=== PATIENT | male | born 1975 | race Caucasian/White ===

== ENCOUNTER 2019-10-11 14:18 | Emergency (ER) | payer OTHER ==
[~2019-10-11] VITALS: Ht 177.8 cm; Wt 77.3 kg
--- NOTE | 2019-10-11 15:09 | ECGEPIP ---
[facility] - ED Test Date: 2019-10-11 Pat Name: EZEKIEL HARP Department: Room: - Gender: Male Manager Research: sandra : 1975 Requested By: Jeevan Bhardwaj Order Number: [id number] Reading MD: Tessie Sequeira Measurements Intervals [place] Rate: 64 P: 76 KS: 167 QRS: 67 QRSD: 92 T: 68 QT: 389 QTc: 404 Interpretive Statements SINUS RHYTHM WITH SINUS ARRHYTHMIA NO PRIOR Electronically Signed on 10-11-2019 15:08:45 EST by Tessie Sequeira
[2019-10-11] MEDS ORDERED: NORCO, ANEXSIA 5/325MG TABLET (HYDROcodone/ACETAMINOPHEN) PO ONE (15:15)
--- NOTE | 2019-10-11 15:50 | REP ---
Head CT without contrast: History: Syncope. Comparison study: No comparison study. CT findings: Bone window settings demonstrate an intact bony calvarium. There is no evidence of skull fracture or incidental bony calvarial lesion. The visualized paranasal sinuses appear clear. No intraorbital abnormality is seen. On soft tissue window setting images; the lateral, third, and fourth ventricles are normal in size and position. Cade-white differentiation pattern is normal above and below the tentorium. There are is no evidence of intracranial hemorrhage. No mass, edema, infarction, or midline shift is seen. No extra-axial fluid collection is appreciated. Impression: Negative noncontrast head CT. Electronically Signed by Kevin Freire MD 10/11/2019 03:41 P
[2019-10-11 15:56] LABS: BASO # 0.1 10^3/uL (0.0-0.2); BASO % 0.4 % (0.0-1.0); EOS % 0.3 % (0.0-3.0); HEMATOCRIT 49.4 % (42.0-52.0); HEMOGLOBIN 16.2 g/dl (13.5-17.5); LYMPH # 1.6 10^3/uL (1.5-5.0); LYMPH % 11.8 % (24.0-44.0); MEAN CORPUSCULAR HEMOGLOBIN 29.2 pg (27.0-33.0); MEAN CORPUSCULAR HGB CONC 32.8 g/dl (32.0-36.5); MONO % 6.9 % (0.0-5.0); NEUTROPHILS % 80.2 % (36.0-66.0); PLATELET COUNT, AUTOMATED 201 10^3/uL (150-450); RED BLOOD COUNT 5.55 10^6/uL (4.30-6.10); WHITE BLOOD COUNT 13.7 10^3/uL (4.0-10.0)
[2019-10-11 16:32] LABS: BLOOD UREA NITROGEN 8 MG/DL (7-18); CALCIUM LEVEL 8.4 MG/DL (8.5-10.1); CARBON DIOXIDE LEVEL 29 MEQ/L (21-32); CHLORIDE LEVEL 107 MEQ/L (98-107); CK-MB VALUE MASS 1.4 NG/ML (<3.6); CPK CREATINE PHOSPHOKINASE 119 U/L (39-308); CREATININE FOR GFR 1.04 MG/DL (0.70-1.30); GLOMERULAR FILTRATION RATE > 60.0 (>60); GLUCOSE, FASTING 112 MG/DL (70-100); MB/CK RELATIVE INDEX 1.18 (< OR =4); SODIUM LEVEL 140 MEQ/L (136-145); THYROID STIMULATING HORMONE 0.644 uIU/ML (0.358-3.740); TROPONIN I < 0.02 NG/ML (< 0.10)
[2019-10-11] MEDS ORDERED: NORC1TAB7 PO ×2 (19:38→19:50)
[2019-10-11 19:52] VITALS: BP 131/79
--- NOTE | 2019-10-11 22:53 | REP ---
Emergency MRI study lumbar spine without contrast: History: Severe low back pain with loss of bladder control. No comparison study. Technique: Sagittal and axial T1 and T2-weighted scans are acquired in the usual fashion with and without fat saturation. Sequences include spin echo, turbo spin-echo, and STIR imaging sequences. MRI findings: Lumbar vertebral body heights are preserved. Alignment is normal. Cortical and medullary bone signal intensity are intact. No bony destructive lesion is seen. There is no evidence of spondylolysis or spondylolisthesis. The tip of the conus medullaris is normal in position and appearance at L1. No extra-vertebral abnormalities observed. There is degenerative disc narrowing and mild desiccation at L2-3, L4-5, and L5-S1 discs. Axial and sagittal images taken at L5-S1 demonstrate mild facet hypertrophy and mild central disc bulging. No thecal sac compression is seen. No foraminal stenosis is observed. At L4-5, there is a broad-based central focal disc protrusion subtly indenting the ventral margin of the thecal sac. No neural foraminal narrowing or central canal stenosis is seen. Minimal facet hypertrophy. At L3-4, there is no evidence of disc protrusion, spinal stenosis, or foraminal narrowing. The more proximal lumbar levels show no significant disc finding. Impression: Mild degenerative disc disease and facet hypertrophy at L2-3, L4-5, and L5-S1. There is broad-based mild central disc protrusion at 4-5 with minimal thecal sac compression. No foraminal narrowing or central canal stenosis. No acute bony abnormality. Electronically Signed by Kevin Freire MD 10/12/2019 08:06 A
== END 2019-10-11 19:55 | disposition home or self-care (01) ==
LOC: EDBD 14:18 → M ED 14:18
DX: R56.9 Unspecified convulsions (principal); M51.36 Other intervertebral disc degeneration, lumbar region; M51.37 Other intervertebral disc degeneration, lumbosacral region; M51.26 Other intervertebral disc displacement, lumbar region

== ENCOUNTER 2019-10-24 17:59 | Emergency (ER) | payer OTHER ==
[~2019-10-24] VITALS: Ht 180.3 cm; Wt 76.4 kg
[~2019-10-24 17:59] MED LIST: NORC1TAB7 PO
[2019-10-24] MEDS ORDERED: NORCO, ANEXSIA 5/325MG TABLET (HYDROcodone/ACETAMINOPHEN) PO ONE (20:15)
[2019-10-24] MEDS ORDERED: KETO10TAB PO (20:18)
[2019-10-24] MEDS ORDERED: NORC1TAB7 PO (20:18)
[2019-10-24 20:25] VITALS: BP 138/88
== END 2019-10-24 20:37 | disposition home or self-care (01) ==
LOC: M ED 17:59
DX: M51.36 Other intervertebral disc degeneration, lumbar region (principal); M54.5 Low back pain; F17.218 Nicotine dependence, cigarettes, with other nicotine-induced disorders

== ENCOUNTER → 2020-06-03 | Outpatient (CLI) | payer OTHER ==
[~2020-06-03] MED LIST changes: +KETO10TAB PO
[2020-06-03 16:04] LABS: PLATELET COUNT, AUTOMATED 236 10^3/uL (150-450)
[2020-06-03 16:22] LABS: INR 1.03; PROTHROMBIN TIME 13.7 SECONDS (12.5-14.3)
[2020-06-03 16:23] LABS: PARTIAL THROMBOPLASTIN TIME 33.6 SECONDS (24.2-38.5)
== END ==
LOC: M PLALAB 13:13
PROVIDERS: ATTEND Physician Assistant
DX: M47.817 Spondylosis without myelopathy or radiculopathy, lumbosacral region (principal)

== ENCOUNTER → 2020-07-24 | Outpatient (CLI) | payer OTHER | LOC: M LABSMTC 10:40 | PROVIDERS: ATTEND Physical Medicine & Rehabilitation | DX: Z01.812 Encounter for preprocedural laboratory examination (principal); Z20.828 Contact with and (suspected) exposure to other viral communicable diseases ==

== ENCOUNTER → 2021-02-14 | Outpatient (CLI) | payer OTHER ==
--- NOTE | 2021-02-14 17:14 | REPVR ---
PROCEDURE INFORMATION: Exam: MR Lumbar Spine Without Contrast. Exam date and time: 02/14/2021 3:51 PM Age: 45 years old Clinical indication: Low back pain; Additional info: Spinal stenosis R/O hnp stenosis compare to 10/11/19 TECHNIQUE: Imaging protocol: Multiplanar magnetic resonance images of the lumbar spine without contrast. COMPARISON: MRI-Spine, L.S. without con 10/11/2019 4:24 PM FINDINGS: Normal lumbar lordosis. Alignment anatomic. Bone marrow signal normal. No MR evidence of acute fracture, dislocation or subluxation. Vertebral body heights maintained. Conus terminates at approximately the T12-L1 level. No abnormal signal within the visualized spinal cord. No fluid collection or soft tissue mass. Multilevel spondylosis, characterized by disc space narrowing, osteophytosis, shallow disc bulges and facet/ligamentous hypertrophy, most pronounced at L4-L5, where there is a shallow superimposed broad-based central disc protrusion and annular tear, overall similar to prior. Mild spinal canal narrowing at L3-L4 and L4-L5. No significant neural foraminal stenosis. IMPRESSION: Mild multilevel spondylosis and degenerative disc disease, similar to prior. Electronically signed by: Joaquin Rabago On 02/14/2021 17:14:53 PM
== END ==
LOC: M PLARAD 14:51
PROVIDERS: ATTEND Physician Assistant
DX: M48.061 Spinal stenosis, lumbar region without neurogenic claudication (principal); M51.36 Other intervertebral disc degeneration, lumbar region; M47.816 Spondylosis without myelopathy or radiculopathy, lumbar region

== ENCOUNTER → 2021-03-14 | Outpatient (REF) | payer OTHER ==
[2021-03-14 18:28] LABS: PLATELET COUNT, AUTOMATED 258 10^3/uL (150-450)
[2021-03-14 18:44] LABS: INR 0.97; PROTHROMBIN TIME 13.1 SECONDS (12.5-14.3)
[2021-03-14 18:56] LABS: BLOOD UREA NITROGEN 19 MG/DL (7-18); CREATININE FOR GFR 1.09 MG/DL (0.70-1.30); GLOMERULAR FILTRATION RATE > 60.0 (>60)
== END ==
LOC: M LAB REF 18:11
PROVIDERS: ATTEND Physical Medicine & Rehabilitation
DX: M51.27 Other intervertebral disc displacement, lumbosacral region (principal)

== ENCOUNTER → 2021-10-03 | Outpatient (CLI) | payer OTHER | LOC: M ADAMS 12:01 | PROVIDERS: ATTEND Physician Assistant Medical | DX: M25.511 Pain in right shoulder (principal) ==

== ENCOUNTER 2022-02-22 19:49 | Emergency (ER) | payer OTHER ==
[~2022-02-22] VITALS: Ht 180.3 cm; Wt 88.0 kg
[2022-02-22] MEDS ORDERED: SIMV20TA22 PO (20:02)
[2022-02-22] MEDS ORDERED: DULO1CAP4 PO (20:03)
[2022-02-22] MEDS ORDERED: CELE1CAP9 PO (20:03)
[2022-02-22] MEDS ORDERED: TIZA10TA (20:04)
[2022-02-22] MEDS ORDERED: PREG150C (20:04)
[2022-02-22] MEDS ORDERED: LORazepam 2 MG/ML VIAL IV STA (20:39)
[2022-02-22] MEDS ORDERED: NS 1,000 ML IV ONE (20:40)
[2022-02-22] MEDS ORDERED: PANTOPRAZOLE 40MG VIAL IV ONE (20:40)
[2022-02-22] MEDS ORDERED: ONDANSETRON 4MG/2ML VIAL IV ONE (20:40)
[2022-02-22] MEDS ORDERED: KETOROLAC 30 MG/ML 1ML VIAL IV ONE (21:00)
[2022-02-22 21:03] LABS: BASO % 0.4 % (0.0-1.0); EOS % 0.3 % (0.0-3.0); HEMATOCRIT 46.6 % (42.0-52.0); HEMOGLOBIN 16.4 g/dl (13.5-17.5); LYMPH % 19.8 % (24.0-44.0); MEAN CORPUSCULAR HEMOGLOBIN 30.4 pg (27.0-33.0); MEAN CORPUSCULAR HGB CONC 35.2 g/dl (32.0-36.5); MEAN CORPUSCULAR VOLUME 86.3 fl (80.0-96.0); MONO # 1.2 10^3/uL (0.0-0.8); MONO % 12.2 % (2.0-8.0); NEUTROPHILS # 6.8 10^3/uL (1.5-8.5); PLATELET COUNT, AUTOMATED 237 10^3/uL (150-450); WHITE BLOOD COUNT 10.2 10^3/uL (4.0-10.0)
[2022-02-22 21:36] LABS: ALBUMIN 3.7 GM/DL (3.2-5.2); ALT/SGPT 33 U/L (12-78); BILIRUBIN,DIRECT 0.1 MG/DL (0.0-0.2); BILIRUBIN,TOTAL 0.3 MG/DL (0.2-1.0); BLOOD UREA NITROGEN 16 MG/DL (7-18); CALCIUM LEVEL 8.7 MG/DL (8.5-10.1); CARBON DIOXIDE LEVEL 23 MEQ/L (21-32); CHLORIDE LEVEL 107 MEQ/L (98-107); CREATININE FOR GFR 1.01 MG/DL (0.70-1.30); GLOMERULAR FILTRATION RATE > 60.0 (>60); GLUCOSE, FASTING 108 MG/DL (70-100); LIPASE 50 U/L (73-393); POTASSIUM SERUM 3.9 MEQ/L (3.5-5.1); SODIUM LEVEL 139 MEQ/L (136-145); TOTAL PROTEIN 6.9 GM/DL (6.4-8.2)
[2022-02-22] MEDS ORDERED: ISOVUE-370 76% 100ML VIAL As Ordered ONE (21:43)
[2022-02-22 22:50] LABS: AMPHETAMINES LEVEL URINE NEGATIVE (NEGATIVE); BARBITURATES URINE NEGATIVE (NEGATIVE); BENZODIAZEPINES URINE NEGATIVE (NEGATIVE); CANNABINOIDS URINE POSITIVE (NEGATIVE); COCAINE METABOLITE URINE NEGATIVE (NEGATIVE); METHADONE URINE NEGATIVE (NEGATIVE); OPIATES URINE NEGATIVE (NEGATIVE); PHENCYCLIDINE URINE NEGATIVE (NEGATIVE)
[2022-02-23] MEDS ORDERED: ONDA4TAB6 PO (00:08)
[2022-02-23] MEDS ORDERED: OMEP40CA4 PO (00:08)
[2022-02-23] MEDS ORDERED: AMOX875T2 PO (00:08)
[2022-02-23 00:36] VITALS: BP 121/72
== END 2022-02-23 00:42 | disposition home or self-care (01) ==
LOC: M ED 19:49
DX: R10.13 Epigastric pain (principal); K08.89 Other specified disorders of teeth and supporting structures; M54.50 Low back pain, unspecified; F17.200 Nicotine dependence, unspecified, uncomplicated; F12.10 Cannabis abuse, uncomplicated; Z79.899 Other long term (current) drug therapy
CPT/HCPCS: 74177; 80048; 80076; 80307; 81001; 83690; 85025; 93005; 96361; 96374; 96375; 99284; C9113; J1885; J2060; J2405; Q9967